=== PATIENT | male | born 1985 | race American Indian/Alaskan Native ===

== ENCOUNTER 2019-01-26 10:38 | Outpatient (CLI) | payer MEDICAID ==
--- NOTE | 2019-01-26 11:58 | Vascular Lab Report ---
LEFT LOWER EXTREMITY VENOUS DOPPLER ULTRASOUND HISTORY: Z74.09 IMPARIED MOBILITY/M79.89 SWELLING OF LEFT LOWER EXTREMITY COMPARISON: None. TECHNIQUE: Grayscale, color and spectral Doppler imaging of the venous system of the left lower extre mity was performed. FINDINGS: Greater saphenous vein: Normal venous flow, compressibility and augmentation. Visualized epigastric vein: Normal blood flow. Sapheno-femoral Junction: Normal venous flow, compressibility and augmentation. Common Femoral Vein: Normal venous flow, compressibility and augmentation. Femoral Vein: Normal venous flow, compressibility and augmentation. Profunda Femoral Vein: Normal venous flow, compressibility, and augmentation. Popliteal Vein: Normal venous flow, compressibility and augmentation. Posterior tibial vein: Normal venous flow, compressibility and augmentation. Additional Findings: None. IMPRESSION: No sonographic evidence of deep or superficial venous thrombosis in the left lower extremity. Signer Name: Eric Duarte MD Signed: 01/26/2019 11:54 AM Workstation Name: [id number]
== END 2019-01-26 10:39 | disposition home or self-care (01) ==
LOC: VAS 10:38
PROVIDERS: ATTEND Internal Medicine
DX: M79.89 Other specified soft tissue disorders (principal); Z74.09 Other reduced mobility
CPT/HCPCS: 93970